=== PATIENT | male | born 1975 | race Caucasian/White ===

== ENCOUNTER 2017-03-08 22:54 | Emergency (ER) | payer OTHER ==
[~2017-03-08] VITALS: Ht 188 cm; Wt 98.9 kg
[2017-03-08 22:56] VITALS: TEMP 36.8; Ht 188 cm; Wt 98.9 kg
[2017-03-08 23:46] LABS: BASO % 0.2 %; BASO ABS # 0.02 K/uL (0-0.2); COMPLETE YES; EOS % 2.5 %; HEMATOCRIT 45.4 % (42-52); IG% 0.2 %; LYMPH % 25.9 %; LYMPH ABS # 2.97 K/uL (1.2-3.4); MEAN CELL VOLUME 90.4 fL (80-100); MEAN CORPUSCULAR HEMOGLOBIN 30.9 pg (25-34); MEAN CORPUSCULAR HGB CONC 34.1 g/dl (32-36); MEAN PLATELET VOLUME 10.4 fL (7.4-10.4); MONO % 5.8 %; NEUT % 65.4 %; PLATELET COUNT 221 K/uL (130-400); RED BLOOD COUNT 5.02 M/uL (4.7-6.1); WHITE BLOOD COUNT 11.45 K/uL (4.8-10.8)
[2017-03-09 00:10] LABS: BUN/CREATININE RATIO 13.1 (10-20); CREATININE 1.1 mg/dl (0.60-1.40); POTASSIUM 3.2 mmol/L (3.5-5.1)
[2017-03-09 01:00] VITALS: BP 167/91; PULSE 84; O2SAT 99
[2017-03-09] MEDS ORDERED: POTASSIUM CHLORIDE 10 MEQ TABCR PO STA (01:11)
--- NOTE | 2017-03-09 01:14 | EMERGENCY ROOM VISIT NOTE ---
History First contact with patient: 23:00 Chief Complaint: ABDOMINAL PAIN Stated Complaint: SEVERE STOMACH PAIN History of Present Illness The patient is a 41 year old male who presents to the Emergency Room with complaints of severe sudden onset of right upper quadrant pain that radiates to his epigastric region described as aching, ranging in severity that is now very much resolved currently 3 out of 10. Symptoms started at 10 PM. They are greatly improved. He's had similar episodes in the past. He had meatloaf for dinner. Patient tried baking soda. Patient denies dyspnea, fever, chills, vomiting, diarrhea, back pain, leg pain or swelling. His grandfather on his paternal side have heart disease. He is unsure of what age. No prior heart testing. No known history of acid reflux. Review of Systems See HPI for pertinent positives & negatives. A total of 10 systems reviewed and were otherwise negative. Past Medical/Surgical History none Social History Smoking Status: Current Every Day Smoker Alcohol Use: none Drug Use: none Marital Status: Housing Status: lives with family Occupation Status: employed Allergies Coded Allergies: No Known Allergies (Unverified , 03/08/17) Physical Exam Vital Signs Date Time Temp Pulse Resp B/P Pulse Ox O2 Delivery O2 Flow Rate FiO2 03/08/17 23:26 Room Air 03/08/17 23:26 Room Air 03/08/17 22:56 36.8 89 20 197/102 98 Room Air Physical Exam VITALS: Vitals are noted on the nurse's note and reviewed by myself. Vital signs hypertensive GENERAL: Pleasant male, in no acute distress, nondiaphoretic, well-developed well-nourished. SKIN: The skin was without rashes, erythema, edema, or bruising. There is no tenting of the skin. Capillary reflex less than 2 seconds. HEAD: Normocephalic atraumatic. EARS: External auditory canals clear, tympanic membranes pearly hilario without erythema or effusion bilaterally. EYES: Pupils equal round and reactive to light and accommodation. Conjunctivae without injection, sclerae without icterus. Extraocular movements intact. NOSE: Patent, turbinates without inflammation or discharge. MOUTH: Mucous membranes moist. Pharynx without erythema or exudate. Uvula midline. Airway patent. Tongue does not deviate. NECK: Supple without nuchal rigidity. No lymphadenopathy. No thyromegaly. Cervical spine is nontender. No JVD. HEART: Regular rate and rhythm without murmurs gallops or rubs. LUNGS: Clear to auscultation bilaterally without wheezes, rales or rhonchi. No dullness to percussion. No retractions or accessory muscle use. ABDOMEN: Positive bowel sounds x 4. Normal tympanic percussion. Soft, minimally tender to palpation right upper quadrant, no CVA tenderness, without masses or organomegaly. No guarding or rebound tenderness. MUSCULOSKELETAL: No muscle atrophy, erythema, or edema noted. NEURO: Patient was alert and oriented to person place and time. Normal sensation to light and sharp touch. No focal neurological deficits. Medical Decision & Procedures Laboratory Results 03/08/17 23:33 Red Blood Count 5.02, Mean Corpuscular Volume 90.4, Mean Corpuscular Hemoglobin 30.9, Mean Corpuscular Hemoglobin Concent 34.1, Mean Platelet Volume 10.4, Neutrophils (%) (Auto) 65.4, Lymphocytes (%) (Auto) 25.9, Monocytes (%) (Auto) 5.8, Eosinophils (%) (Auto) 2.5, Basophils (%) (Auto) 0.2, Neutrophils # (Auto) 7.49, Lymphocytes # (Auto) 2.97, Monocytes # (Auto) 0.66, Eosinophils # (Auto) 0.29, Basophils # (Auto) 0.02 03/08/17 23:33 Test 03/08/17 23:33 03/08/17 23:37 White Blood Count 11.45 K/uL (4.8-10.8) Red Blood Count 5.02 M/uL (4.7-6.1) Hemoglobin 15.5 g/dL (14.0-18.0) Hematocrit 45.4 % (42-52) Mean Corpuscular Volume 90.4 fL (80-100) Mean Corpuscular Hemoglobin 30.9 pg (25-34) Mean Corpuscular Hemoglobin Concent 34.1 g/dl (32-36) Platelet Count 221 K/uL (130-400) Mean Platelet Volume 10.4 fL (7.4-10.4) Neutrophils (%) (Auto) 65.4 % Lymphocytes (%) (Auto) 25.9 % Monocytes (%) (Auto) 5.8 % Eosinophils (%) (Auto) 2.5 % Basophils (%) (Auto) 0.2 % Neutrophils # (Auto) 7.49 K/uL (1.4-6.5) Lymphocytes # (Auto) 2.97 K/uL (1.2-3.4) Monocytes # (Auto) 0.66 K/uL (0.11-0.59) Eosinophils # (Auto) 0.29 K/uL (0-0.5) Basophils # (Auto) 0.02 K/uL (0-0.2) RDW Standard Deviation 42.7 fL (36.4-46.3) RDW Coefficient of Variation 12.9 % (11.5-14.5) Immature Granulocyte % (Auto) 0.2 % Immature Granulocyte # (Auto) 0.02 K/uL (0.00-0.02) Anion Gap 7.0 mmol/L (3-11) Est Creatinine Clear Calc Drug Dose 108.9 ml/min Estimated GFR () 94.8 Estimated GFR (Non- 81.8 BUN/Creatinine Ratio 13.1 (10-20) Calcium Level 9.0 mg/dl (8.5-10.1) Total Bilirubin 0.7 mg/dl (0.2-1) Direct Bilirubin 0.3 mg/dl (0-0.2) Aspartate Amino Transf (AST/SGOT) 72 U/L (15-37) Alanine Aminotransferase (ALT/SGPT) 69 U/L (12-78) Alkaline Phosphatase 113 U/L (45-117) Total Protein 7.4 gm/dl (6.4-8.2) Albumin 3.9 gm/dl (3.4-5.0) Lipase 108 U/L (73-393) Bedside Troponin I 0.000 ng/ml (0-0.045) ED Course Prior records/ancillary studies reviewed. Triage Nursing notes reviewed. Additional history obtained from family. The patient's history was concerning for abdominal pain. Differential diagnosis: Etiologies such as appendicitis, cardiac, diverticulitis, PUD, biliary pathology , UTI, pancreatitis, obstruction, mesenteric ischemia, aortic pathology, infections, inflammatory bowel disease, renal colic, as well as others were entertained. Physical examination findings: As above. ER treatment provided: Patient declined pain meds, potassium On reassessment the patient felt better. Diagnostics interpreted by me: ECG: Sinus, normal intervals, no acute ST-T wave changes. Impression normal sinus rhythm interpreted by myself The labs revealed mild leukocytosis. Negative troponin. Hypokalemia Imaging studies: US GALLBLADDER: Gallbladder sludge and small non-shadowing stone versus polyp in region of gallbladder neck (not well-demonstrated on decubitus views). Gallbladder is physiologically distended but its wall appears mildly thickened, measuring up to 0.4 cm.. Sonographic Tucker's sign is negative. Findings are not specific for cholecystitis and correlation with biliary scan could be considered as clinically warranted Common bile duct is not dilated Liver parenchyma is mildly hyperechoic, suggesting possible hepatic steatosis. Subcentimeter calcifications in right lobe of liver, likely calcified granulomas. Right kidney is unremarkable Radiologist: Marvel Clark MD Exam and history seem consistent with biliary colic. Patient was advised follow -up outpatient with family care or surgery for high-dose scan and for further workup on his gallbladder. He was advised to avoid fatty foods. He was advised to return to the ER immediately for fevers, severe pain, vomiting, worsening signs or symptoms or as needed. Patient was pain-free while in the ER. He was well-appearing. He did not have an acute abdomen on exam. Repeat blood pressure was improved. By the evaluation outlined above emergent etiologies such as appendicitis, diverticulitis, PUD, UTI, pancreatitis, obstruction, mesenteric ischemia, aortic pathology, infections, inflammatory bowel disease, renal colic, as well as others were deemed relatively unlikely. The pt informed about the findings as listed above. All questions were answered and pleased with the treatment. Return instructions were outlined and the patient was discharged in stable condition. Referral: The patient was referred back to their primary care physician for follow-up in 2 to 3 days for a recheck of the current condition. case reviewed with my Attending Medical Decision As above Impression Primary Impression: Biliary colic Departure Information Dispostion Home / Self-Care Condition GOOD Referrals No Doctor, Assigned (PCP) Patient Instructions My [facility] Additional Instructions Recommend outpatient HIDA scan. This can be ordered by her family care doctor for further workup on your gallbladder. Avoid fatty foods and large meals. Recommend stop smoking. Ibuprofen(Motrin, Advil) may be used for fever or pain. Use 600mg every six hours as needed. Take with food. Avoid using more than 2400mg in a 24 hour period. Do not use 2400mg per day for more than three consecutive days without physician direction. Prolonged inappropriate use can lead to stomach upset or ulcers. (AND/OR) Acetaminophen(Tylenol) may be used for fever or pain. Use 1000mg every six hours as needed. Avoid using more than 3000mg in a 24 hour period. Rest and drink plenty of fluids as tolerated. Continue current medications. Avoid strenuous activities and anything that worsens your pain. Resume normal activities once your symptoms resolve. Return to the ER immediately for worsening or persistent abdominal pain, vomiting, fevers, chest pains, difficulty breathing, worsening of your condition , or as needed. Follow up with your primary physician or surgery in 2-3 days for a recheck of your current condition.
--- NOTE | 2017-03-09 06:24 | DIAGNOSTIC IMAGING REPORT ---
CHEST ONE VIEW PORTABLE CLINICAL HISTORY: CHEST PAIN dyspnea COMPARISON STUDY: No previous studies for comparison. FINDINGS: The bones soft tissues and hemidiaphragms are normal. The cardiomediastinal silhouette is normal. The lungs are clear. The pulmonary vasculature is normal. IMPRESSION: Negative chest. Electronically signed by: Mandeep Moreno M.D. 03/09/2017 6:23 AM Dictated Date/Time: 03/09/2017 6:22 AM
--- NOTE | 2017-03-09 06:41 | DIAGNOSTIC IMAGING REPORT ---
BILIARY ULTRASOUND CLINICAL HISTORY: ] Quadrant abdominal pain COMPARISON STUDY: No previous studies for comparison. FINDINGS: The pancreas appear normal as visualized. No focal hepatic masses were delineated. There are several hepatic calcifications. There is borderline increase in hepatic echogenicity. There is no ductal dilatation. The common bile duct measures 4 mm. There is a tiny gallbladder polyps versus nonshadowing stone within the gallbladder neck.. The gallbladder wall is at the upper limits of normal in thickness. There is no right-sided hydronephrosis. IMPRESSION: 1. Small nonshadowing calculus versus polyp in the region of the gallbladder neck 2. Borderline gallbladder wall thickening 3. No evidence of ductal dilatation. Electronically signed by: Wilman Lord M.D. 03/09/2017 6:39 AM Dictated Date/Time: 03/09/2017 6:37 AM
== END 2017-03-09 01:33 | disposition home or self-care (01) ==
LOC: C.EDB 22:56 → C.EDA 03-09 01:33
DX: K80.50 Calculus of bile duct without cholangitis or cholecystitis without obstruction (principal); F17.200 Nicotine dependence, unspecified, uncomplicated

== ENCOUNTER 2017-10-09 09:40 | Emergency (ER) | payer OTHER, BC ==
[~2017-10-09] VITALS: Ht 185.4 cm; Wt 91.8 kg
[2017-10-09 09:44] VITALS: TEMP 36.8; Ht 185.4 cm; Wt 91.8 kg
[2017-10-09] MEDS ORDERED: MoRPHine SULFATE 10 MG/ML CARP/VIAL IM STA (10:08)
[2017-10-09] MEDS ORDERED: KETOROLAC TROMETHAMINE 60 MG/2 ML VIAL IM STA (10:08)
--- NOTE | 2017-10-09 11:44 | DIAGNOSTIC IMAGING REPORT ---
CT LUMBAR SPINE WITHOUT CT DOSE: 596.53 mGycm CLINICAL HISTORY: lower back pain LEG RADICULOPATHY. TECHNIQUE: Helical images were acquired in transverse plane. Reformatted sagittal and coronal images were reviewed. A dose lowering technique was utilized adhering to the principles of ALARA. CONTRAST: No contrast was administered COMPARISON STUDY: None. FINDINGS: L1-2 level: There is no evidence of significant disc bulge or focal herniation. There is no evidence of spinal or foraminal stenosis. L2-3 level: There is no evidence of significant disc bulge or focal herniation. There is no evidence of spinal or foraminal stenosis. L3-4 level: There is a very minimal circumferential disc bulge. There is no significant spinal or foraminal stenosis L4-5 level: There is a very minimal circumferential disc bulge. There is no significant spinal or foraminal stenosis L5-S1 level: There is no evidence of significant disc bulge or focal herniation. There is no evidence of spinal or foraminal stenosis. No fractures or subluxations are visualized. No destructive lesions are evident. IMPRESSION: 1. No fractures or subluxations identified 2. No evidence of significant spinal or foraminal stenosis Electronically signed by: Wilman Lord M.D. 10/09/2017 11:43 AM Dictated Date/Time: 10/09/2017 11:40 AM
[2017-10-09] MEDS ORDERED: GI COCKTAIL PO ONE (12:00)
[2017-10-09] MEDS ORDERED: LIDOCAINE HCL 2% VISC SOLN 20 ML UDC ONE (12:16)
[2017-10-09] MEDS ORDERED: ALUMINUM/MAGNESIUM SUSP 30 ML UDC ONE (12:16)
[2017-10-09 12:33] LABS: BASO % 0.2 %; BASO ABS # 0.03 K/uL (0-0.2); COMPLETE YES; EOS % 1.2 %; HEMATOCRIT 47.6 % (42-52); IG% 0.2 %; LYMPH ABS # 1.93 K/uL (1.2-3.4); MEAN CELL VOLUME 91.2 fL (80-100); MEAN CORPUSCULAR HEMOGLOBIN 32.2 pg (25-34); MEAN CORPUSCULAR HGB CONC 35.3 g/dl (32-36); MEAN PLATELET VOLUME 10.2 fL (7.4-10.4); MONO % 4.4 %; PLATELET COUNT 202 K/uL (130-400); RED BLOOD COUNT 5.22 M/uL (4.7-6.1); WHITE BLOOD COUNT 12.03 K/uL (4.8-10.8)
[2017-10-09 12:49] LABS: BUN/CREATININE RATIO 16.4 (10-20); CALCIUM 9.5 mg/dl (8.5-10.1); CREATININE 0.88 mg/dl (0.60-1.40); POTASSIUM 3.7 mmol/L (3.5-5.1)
--- NOTE | 2017-10-09 14:13 | DIAGNOSTIC IMAGING REPORT ---
ULTRASOUND RIGHT UPPER QUADRANT ABDOMEN CLINICAL HISTORY: Elevated lipase. COMPARISON STUDY: Abdominal ultrasound dated 03/08/2017. TECHNIQUE: Real-time, grayscale, and color flow sonography of the right upper quadrant of the abdomen was performed. Images are reviewed in the transverse and longitudinal planes. FINDINGS: Liver: The liver is normal in size and echotexture. There is no intrahepatic biliary ductal dilatation. The main portal vein is patent. A calcified granuloma is identified in the right hepatic lobe. Gallbladder: The gallbladder is surgically absent. The common bile duct measures up to 0.8 cm in diameter. Pancreas: The majority of the pancreas was not well visualized. Image portions of the pancreatic head and body are normal in appearance. The splenic vein is patent. Right kidney: Survey images of the right kidney demonstrate normal size and echotexture. There is no hydronephrosis. Ascites: None. IMPRESSION: Unremarkable sonographic assessment of the right upper quadrant noting status post cholecystectomy. Electronically signed by: Adonis Chavez M.D. 10/09/2017 2:12 PM Dictated Date/Time: 10/09/2017 2:11 PM
[2017-10-09] MEDS ORDERED: PRED50TA PO (14:55)
[2017-10-09] MEDS ORDERED: OXYC1TAB3 PO (14:55)
[2017-10-09 15:30] VITALS: BP 155/82; PULSE 88; O2SAT 96
--- NOTE | 2017-10-09 16:39 | EMERGENCY ROOM VISIT NOTE ---
History Report prepared by Derrick: Sathish Williamson Under the Supervision of: Dr. Carlos Rebolledo D.O. First contact with patient: 09:59 Chief Complaint: BACK INJURY Stated Complaint: BACK INJURY AT WORK History of Present Illness The patient is a 41 year old male who presents to the Emergency Room with complaints of sudden lower back pain occurring yesterday. 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 The patient notes that the pain is worse with movement and straightening his back, and he is unable to walk due to the pain. He reports that his thighs feel tingly, and occasionally when the pain increases his legs become wobbly, though he denies any leg pain. The patient denies any history of cancer, recent traumas , IV drug use, or other medical problems. He has no belly pain. No other complaints at this time. Source of History: patient Onset: yesterday Position: back Timing: other (sudden) Modifying Factors (Worsening): movement, other (straightening his back) Associated Symptoms: No numbness Note: Associated symptoms: tingling in his legs. Review of Systems See HPI for pertinent positives & negatives. A total of 10 systems reviewed and were otherwise negative. Past Medical & Surgical Medical Problems: (1) No chronic problems Social History Smoking Status: Current Every Day Smoker Alcohol Use: none Drug Use: none Marital Status: Housing Status: lives with family Occupation Status: employed Current/Historical Medications Scheduled Prednisone (Prednisone), 50 MG PO DAILY Scheduled PRN Oxycodone Immediate Rel Tab (Roxicodone Ir), 5 MG PO Q6H PRN for Pain Allergies Coded Allergies: No Known Allergies (Unverified , 10/09/17) Physical Exam Vital Signs Date Time Temp Pulse Resp B/P (MAP) Pulse Ox O2 Delivery O2 Flow Rate FiO2 10/09/17 15:30 88 20 155/82 96 10/09/17 13:10 93 20 170/91 96 10/09/17 12:21 76 20 152/94 96 Room Air 10/09/17 11:41 70 20 184/117 100 10/09/17 09:44 36.8 91 18 168/84 98 Room Air Physical Exam GENERAL: Sitting hunched over in the bed. No acute distress and uncomfortable. EYE EXAM: normal conjunctiva. PERRL and EOM's grossly intact. OROPHARYNX: no exudate, no erythema, lips, buccal mucosa, and tongue normal and mucous membranes are moist NECK: supple, no nuchal rigidity, no adenopathy, non-tender LUNGS: Clear to auscultation. Normal chest wall mechanics HEART: no murmurs, S1 normal and S2 normal ABDOMEN: abdomen soft, non-tender, normo-active bowel sounds, no masses, no rebound or guarding. BACK: Back is symmetrical on inspection and there is no deformity, no midline tenderness, no CVA tenderness. SKIN: no rashes and no bruising UPPER EXTREMITIES: upper extremities are grossly normal. LOWER EXTREMITIES: Flexion and extension of the hips greater than 40 degrees with significant pain mostly on the right. Knees ankle and EHL 5/5 bilaterally. Able to walk on heels and toes but bent over. Gross sensation intact. DP 2/4. Patellar and Achilles reflex 1/4 bilaterally. No pitting edema. NEURO EXAM: Normal sensorium, cranial nerves II-XII grossly intact, normal speech, no gross weakness of arms. Medical Decision & Procedures ER Provider Diagnostic Interpretation: Radiology results as stated below per my review and the radiologist's interpretation: CT LUMBAR SPINE WITHOUT CT DOSE: 596.53 mGycm CLINICAL HISTORY: lower back pain LEG RADICULOPATHY. TECHNIQUE: Helical images were acquired in transverse plane. Reformatted sagittal and coronal images were reviewed. A dose lowering technique was utilized adhering to the principles of ALARA. CONTRAST: No contrast was administered COMPARISON STUDY: None. FINDINGS: L1-2 level: There is no evidence of significant disc bulge or focal herniation. There is no evidence of spinal or foraminal stenosis. L2-3 level: There is no evidence of significant disc bulge or focal herniation. There is no evidence of spinal or foraminal stenosis. L3-4 level: There is a very minimal circumferential disc bulge. There is no significant spinal or foraminal stenosis L4-5 level: There is a very minimal circumferential disc bulge. There is no significant spinal or foraminal stenosis L5-S1 level: There is no evidence of significant disc bulge or focal herniation. There is no evidence of spinal or foraminal stenosis. No fractures or subluxations are visualized. No destructive lesions are evident. IMPRESSION: 1. No fractures or subluxations identified 2. No evidence of significant spinal or foraminal stenosis Electronically signed by: Wilman Lord M.D. 10/09/2017 11:43 AM Dictated Date/Time: 10/09/2017 11:40 AM ULTRASOUND RIGHT UPPER QUADRANT ABDOMEN CLINICAL HISTORY: Elevated lipase. COMPARISON STUDY: Abdominal ultrasound dated 03/08/2017. TECHNIQUE: Real-time, grayscale, and color flow sonography of the right upper quadrant of the abdomen was performed. Images are reviewed in the transverse and longitudinal planes. FINDINGS: Liver: The liver is normal in size and echotexture. There is no intrahepatic biliary ductal dilatation. The main portal vein is patent. A calcified granuloma is identified in the right hepatic lobe. Gallbladder: The gallbladder is surgically absent. The common bile duct measures up to 0.8 cm in diameter. Pancreas: The majority of the pancreas was not well visualized. Image portions of the pancreatic head and body are normal in appearance. The splenic vein is patent. Right kidney: Survey images of the right kidney demonstrate normal size and echotexture. There is no hydronephrosis. Ascites: None. IMPRESSION: Unremarkable sonographic assessment of the right upper quadrant noting status post cholecystectomy. Electronically signed by: Adonis Chavez M.D. 10/09/2017 2:12 PM Dictated Date/Time: 10/09/2017 2:11 PM Laboratory Results 10/09/17 12:10 Red Blood Count 5.22, Mean Corpuscular Volume 91.2, Mean Corpuscular Hemoglobin 32.2, Mean Corpuscular Hemoglobin Concent 35.3, Mean Platelet Volume 10.2, Neutrophils (%) (Auto) 78.0, Lymphocytes (%) (Auto) 16.0, Monocytes (%) (Auto) 4.4, Eosinophils (%) (Auto) 1.2, Basophils (%) (Auto) 0.2, Neutrophils # (Auto) 9.38, Lymphocytes # (Auto) 1.93, Monocytes # (Auto) 0.53, Eosinophils # (Auto) 0.14, Basophils # (Auto) 0.03 10/09/17 12:10 Test 10/09/17 12:10 White Blood Count 12.03 K/uL (4.8-10.8) Red Blood Count 5.22 M/uL (4.7-6.1) Hemoglobin 16.8 g/dL (14.0-18.0) Hematocrit 47.6 % (42-52) Mean Corpuscular Volume 91.2 fL (80-100) Mean Corpuscular Hemoglobin 32.2 pg (25-34) Mean Corpuscular Hemoglobin Concent 35.3 g/dl (32-36) Platelet Count 202 K/uL (130-400) Mean Platelet Volume 10.2 fL (7.4-10.4) Neutrophils (%) (Auto) 78.0 % Lymphocytes (%) (Auto) 16.0 % Monocytes (%) (Auto) 4.4 % Eosinophils (%) (Auto) 1.2 % Basophils (%) (Auto) 0.2 % Neutrophils # (Auto) 9.38 K/uL (1.4-6.5) Lymphocytes # (Auto) 1.93 K/uL (1.2-3.4) Monocytes # (Auto) 0.53 K/uL (0.11-0.59) Eosinophils # (Auto) 0.14 K/uL (0-0.5) Basophils # (Auto) 0.03 K/uL (0-0.2) RDW Standard Deviation 42.5 fL (36.4-46.3) RDW Coefficient of Variation 12.8 % (11.5-14.5) Immature Granulocyte % (Auto) 0.2 % Immature Granulocyte # (Auto) 0.02 K/uL (0.00-0.02) Anion Gap 8.0 mmol/L (3-11) Est Creatinine Clear Calc Drug Dose 122.3 ml/min Estimated GFR () 121.9 Estimated GFR (Non- 105.2 BUN/Creatinine Ratio 16.4 (10-20) Calcium Level 9.5 mg/dl (8.5-10.1) Total Bilirubin 0.8 mg/dl (0.2-1) Direct Bilirubin 0.2 mg/dl (0-0.2) Aspartate Amino Transf (AST/SGOT) 72 U/L (15-37) Alanine Aminotransferase (ALT/SGPT) 55 U/L (12-78) Alkaline Phosphatase 129 U/L (45-117) Total Protein 7.8 gm/dl (6.4-8.2) Albumin 4.1 gm/dl (3.4-5.0) Lipase 1552 U/L (73-393) Laboratory results per my review. Medications Administered Medications (Trade) Dose Ordered Sig/Jake Route Start Time Stop Time Status Last Admin Dose Admin Morphine Sulfate (MoRPHine SULFATE INJ) 6 mg NOW STAT IM 10/09/17 10:08 10/09/17 10:10 DC 10/09/17 10:41 6 MG Prednisone (PredniSONE TAB) 60 mg NOW STAT PO 10/09/17 10:08 10/09/17 10:10 DC 10/09/17 10:42 60 MG Ketorolac Tromethamine (Toradol Inj) 60 mg NOW STAT IM 10/09/17 10:08 10/09/17 10:10 DC 10/09/17 10:41 60 MG Lidocaine HCl (Viscous Lidocaine 2% Soln) 20 ml STK-MED ONCE .ROUTE 10/09/17 12:16 10/09/17 12:17 DC 10/09/17 12:18 20 ML Al Hydroxide/Mg Hydroxide (Maalox Susp) 30 ml STK-MED ONCE .ROUTE 10/09/17 12:16 10/09/17 12:17 DC 10/09/17 12:18 30 ML ED Course ED COURSE: Vital signs were reviewed and showed situational hypertension The patients medical record was reviewed The above diagnostic studies were performed and reviewed. ED treatments and interventions as stated above. 0959: The patient was evaluated in room C3. A complete history and physical examination was performed. 1008: Toradol 60mg IM, Prednisone 60mg PO, Morphine Sulfate 6mg IM 1056: I reevaluated the patient, and he is doing well. 1128: The patient is ambulating and feeling significantly better 1158: The patient has been getting intermittent sharp pain in his right upper quadrant which feels like previous gall bladder attacks. He states that nothing is making it better or worse. 1216: Maalox Susp 30ml PO, Viscous Lidocaine 2% Soln 20ml PO 1312: I reassessed the patient. I updated him, and he is feeling better. 1441: I discussed the patient's case with Yajaira CORRALES, and she feels that the patient is okay to be discharged home 1445: Upon reevaluation, the patient is doing well and was able to tolerate sprite with no pain. I discussed my findings with the patient and he understands and agrees with the treatment plan. Based on the patients age, coexisting illnesses, exam and lab findings the decision to treat as an outpatient was made. The patient remained stable while under my care. The patient appeared well at the time of discharge. Medical Decision Differential diagnoses includes but is not limited to lumbar radiculopathy, muscle strain, facture, cauda equina, mass, and disc herniation. Patient is a 41-year-old male who presents to ER solely for lower back pain after lifting a tire at work yesterday. No weakness or numbness in the legs. Pain is worsened with straightening his back. Neuro exam is completely intact. Able to walk on heels and toes. He was given IM narcotics, Toradol and oral steroids. During his stay awaiting CT he had severe right upper quadrant abdominal pain which felt like his previous gallbladder issues. He does have a previous cholecystectomy. At this time IV was established and blood work was obtained. CBC shows a mild leukocytosis of 12,000. BMP was unremarkable. Bilirubin and LFTs were essentially normal. Lipase was elevated at 1500. Ultrasound right upper quadrant was unremarkable. CT of the lumbar spine was unremarkable. After narcotics and steroids she was ambulatory throughout the room without difficulty. His abdominal pain completely resolved. He was able to tolerate liquids. After a long discussion with him felt was reasonable to discharge him and have him follow-up as an outpatient with his PCP and GI as I discussed with them over the phone. Patient was discharged with steroids and OxyIR. Discussed with Pt concerning signs and symptoms to watch out for. Pt was instructed to follow up with their PCP and discussed with the patient their option to return to the ED at anytime for persistent or worsening symptoms. The appropriate anticipatory guidance and out-patient management, including indications for return to the emergency department, were explained at length to the patient and understood. [place] Drug Monitoring Program Search Results: patient reviewed within database, no issues identified Medication Reconcilliation Current Medication List: was personally reviewed by me Blood Pressure Screening Patient's blood pressure: Elevated blood pressure Blood pressure disposition: Elevated BP felt to be situational Consults Time Called: 1408 Consulting Physician: Yajaira CORRALES Returned Call: [phone] I discussed the patient's case with Yajaira CORRALES, and she feels that the patient is okay to be discharged home Impression Primary Impression: Pancreatitis Additional Impression: Lumbar radiculopathy Scribe Attestation The scribe's documentation has been prepared under my direction and personally reviewed by me in its entirety. I confirm that the note above accurately reflects all work, treatment, procedures, and medical decision making performed by me. Departure Information Dispostion Home / Self-Care Prescriptions Oxycodone Immediate Rel Tab (ROXICODONE IR) 5 Mg Tab 5 MG PO Q6H Y for Pain, #20 TAB Prov: Carlos Rebolledo, DO 10/09/17 Prednisone (PREDNISONE) 50 Mg Tab 50 MG PO DAILY for 4 Days, TAB Prov: Carlos Rebolledo, DO 10/09/17 Referrals Kat Caldwell D.O. (PCP) Forms HOME CARE DOCUMENTATION FORM, IMPORTANT VISIT INFORMATION, Work Instructions Patient Instructions Back Pain - [facility], My [facility] Additional Instructions Please follow up with your primary care doctor or if you are a student, [facility] with in the next 24 hours. Any worsening of your symptoms, please return to the ED immediately. This includes any fevers greater than 100.4, worsening pain, chest pain, shortness breath, persistent nausea, vomiting, unable to eat or drink, or any other concerning signs or symptoms from your standpoint. You were given medications during this visit that will inhibit your ability to drive, operate machinery and work. Please do NOT drive, operate machinery or work for the next 12hrs. You were also given a prescription for a narcotic. While taking this medication you should also not drive, operate machinery and or work. Please refrain from returning to work until you are cleared by your Workmen's Comp. physician or primary care doctor. Please follow up with gastroenterology for your pancreatitis. If your pain returns and/or you have persistent nausea and vomiting please return immediately to the ER. Problem Qualifiers Primary Impression: Pancreatitis Chronicity: acute Pancreatitis type: unspecified pancreatitis type Acute pancreatitis complication: unspecified Qualified Codes: K85.90 - Acute pancreatitis without necrosis or infection, unspecified
== END 2017-10-09 15:33 | disposition home or self-care (01) ==
LOC: C.EDB 09:41 → C.EDC 15:33
DX: K85.90 Acute pancreatitis without necrosis or infection, unspecified (principal); M54.16 Radiculopathy, lumbar region; D72.829 Elevated white blood cell count, unspecified; F17.200 Nicotine dependence, unspecified, uncomplicated; Z90.49 Acquired absence of other specified parts of digestive tract